=== PATIENT | female | born 2005 | race Caucasian/White ===

== ENCOUNTER 2023-06-09 16:37 | Emergency (ER) | payer BC ==
[~2023-06-09] VITALS: Ht 154.9 cm; Wt 56.8 kg
[2023-06-09 16:41] VITALS: TEMP 97
[2023-06-09 17:14] LABS: BASO # 0.1 K/mm3 (0.0-0.2); BASO % 1.3 % (0.0-2.0); EOS # 0.2 K/mm3 (0.0-0.7); EOS % 4.6 % (0.0-4.0); GRAN # 1.6 K/mm3 (1.4-6.5); GRAN % 43.2 % (42.2-75.2); HEMOGLOBIN 11.2 g/dl (12.0-15.0); LYMPH # 1.6 K/mm3 (1.2-3.4); MEAN CELL VOLUME 88 fl (80.0-95.0); MEAN CORPUSCULAR HEMOGLOBIN 28 pg (26-32); MEAN CORPUSCULAR HGB CONC 32 g/dl (33.0-37.0); MEAN PLATELET VOLUME 9.5 fl (7.4-10.4); MONO # 0.3 K/mm3 (0.1-0.6); MONO % 8.9 % (1.7-9.3); PLATELET COUNT 264 K/mm3 (130-400); RED BLOOD COUNT 4.04 M/mm3 (4.10-5.30); REDCELL DISTRIBUTION WIDTH-CV 14.3 % (11.5-14.5)
[2023-06-09 17:16] LABS: HEMATOCRIT 35.5 % (35.0-45.0)
[2023-06-09 17:31] LABS: ALBUMIN 3.7 gm/dL (3.5-5.0); BILIRUBIN,TOTAL 0.2 mg/dL (0.2-1.2); C-REACTIVE PROTEIN 0.23 mg/dL (0.00-0.50); CALCIUM 8.8 mg/dL (8.4-10.2); CREATININE, serum 0.68 mg/dL (0.57-1.11); POTASSIUM 3.5 mmol/L (3.5-4.5); TOTAL PROTEIN 6.7 gm/dL (6.2-8.1)
[2023-06-09 18:05] LABS: COLLECTION METHOD CLEAN CATCH
[2023-06-09 18:23] LABS: PH 7.5 (5.0-8.5); URINE APPEARANCE Hazy (CLEAR/HAZY); URINE BLOOD Negative (NEGATIVE); URINE COLOR Yellow (YELLOW); URINE GLUCOSE Negative (NEGATIVE); URINE KETONE TRACE (NEGATIVE); URINE NITRATE Negative (NEGATIVE); URINE PROTEIN(semi-quant) 2+ (NEGATIVE); URINE UROBILINOGEN 0.2 E.U/dL (0.2-1.0)
[2023-06-09 18:28] LABS: MUCOUS Present (NOT PRESENT); SQUAMOUS EPITHELIAL 0-2 /hpf (0-10); URINE BACTERIA Occasional /hpf (NONE SEEN)
[2023-06-09 18:34] VITALS: BP 106/70; PULSE 86
== END 2023-06-09 18:39 | disposition home or self-care (01) ==
LOC: COL.ER 16:37
PROVIDERS: Family Medicine
DX: R10.31 Right lower quadrant pain (principal); R18.8 Other ascites
CPT/HCPCS: J7120; Q9967